=== PATIENT | male | born 1970 | race Caucasian/White ===

== ENCOUNTER 2017-02-14 20:31 | Observation (INO) ==
[2017-02-14] MEDS ORDERED: ASPIRIN 325 MG TABLET PO STA (20:56)
[2017-02-14] MEDS ORDERED: SODIUM CHLORIDE 0.9% 1,000 ML IV STA (20:56)
[2017-02-14] MEDS ORDERED: NITROGLYCERIN SL 0.4 MG TABLET SL PRN (20:56)
[2017-02-14] MEDS ORDERED: ASPIRIN 325 MG TABLET ONE (21:09)
--- NOTE | 2017-02-14 21:19 | Emergency Department Note ---
IMarina Emily, am scribing for, and in the presence of, Arsh Celis MD 21:03. IVimal Andrew, MD, personally performed the services described in this documentation, ascribed by Tyra Gray in my presence, and it is both accurate and complete . Arrival - Arrival Chief Complaint: Chest Pain Stated Complaint: CHEST PAINS ED Nursing Triage Note: C/O Midsternal chest pain-nonradiating. 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 Pt described pain as a pressure type pain. Denies nausea /vomiting/diaphoresis or shortness of breath with the pain. Right arm 175/124. Left arm 163/122. 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 Pt describes pain as sharp like a knife with some pressure and constantly while walking around the house, but denies anything strenuous. He did chew 3 tablets of aspirin 30 min COORDINATOR OF EVALUATION but denies nitro use. Family member notes that pt 's face was clammy en route to ED. Pt denies pain radiating, nausea or vomiting. PMHx of sleep apnea (dx 3-4 yrs ago) but compliant with machine during sleep each night due to mask being uncomfortable; HTN with hydrochlorothiazide under supervision of Dr. Laura. Pt is an occasional ETOH user but denies smoking tobacco. Family member notes pt did drink last night, in moderation. 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 Pt's BP is 195/123 in ED. Onset (ago): hour(s) Consistency: constant Severity: moderate Severity scale (1-10): 5 Quality: aching (pressure), sharp Allergies/Adverse Reactions: Allergies Allergy/AdvReac Type Severity Reaction Status Date / Time No Known Allergies Allergy Verified 02/14/17 20:37 Home Medications: Home Medications Medication Instructions Recorded Confirmed Type hydroCHLOROthiazide 25 mg PO DAILY 02/14/17 02/14/17 History [Hydrochlorothiazide] Review of System - Review of System 12 point system: reviewed and no additional remarkable complaints except as stated - Review of System Constitutional: Present: diaphoresis (clamminess on face but now resolved). Absent: fever, weakness Respiratory: Absent: respiratory distress Cardiovascular: Present: chest pain (mid sternum; constant; sharp). Absent: dyspnea on exertion, orthopnea, syncope Gastrointestinal: Absent: abdominal pain, nausea, vomiting Musculoskeletal: Absent: arm pain Skin: Absent: rash Neurological: Absent: headache, numbness, abnormal gait Psychiatric: Absent: anxiety Medical,Surgical,& Family Hx - Medical History Cardio: History of: Hypertension Respiratory: History of: Obstructive Sleep Apnea - Surgical History Surgical History: noncontributory - Family History Family History: noncontributory - Social History Smoking Status: Never smoker Frequency of Alcohol Use: Occasionally Type of Drug Use: None Functional capacity: independent ambulation Exam Vital Signs: Vital Signs Temperature 97.9 F 02/14/17 21:33 Pulse Rate 106 H 02/14/17 21:33 Respiratory Rate 22 02/14/17 21:33 Blood Pressure 163/122 02/14/17 21:33 O2 Sat by Pulse Oximetry 100 02/14/17 20:37 - General General appearance: alert, in no apparent distress, obese - Head Head exam: Present: atraumatic, normocephalic - Eye Eye exam: Present: PERRL, EOMI - ENT ENT exam: Present: mucous membranes moist. Absent: mucous membranes dry - Neck Neck exam: Present: full ROM. Absent: tenderness - Chest Chest inspection: Present: symmetric chest wall rise. Absent: tenderness - Respiratory Respiratory exam: Present: normal lung sounds bilaterally. Absent: accessory muscle use, respiratory distress, wheezes - Cardiovascular Cardiovascular exam: Present: regular rate, normal rhythm, normal heart sounds - Abdominal Exam Abdominal exam: Present: soft, hernia (periumbilical hernia that is easily reducible). Absent: distention - Extremities Exam Extremities exam: Present: full ROM, pedal edema (bilaterally; +1 pitting). Absent: tenderness - Neurological Exam Neurological exam: Present: alert, oriented X3, CN II-XII intact. Absent: motor sensory deficit - Psychiatric Psychiatric exam: Present: normal affect, normal mood - Skin Skin exam: Present: warm, dry, intact, normal color. Absent: rash, diaphoresis Course Course Narrative: EKG sinus mechanism, rate 106, normal axis, no evidence of acute ischemia. Chest x-ray with no focal infiltrates, normal mediastinum, normal heart border. Labs unremarkable and negative troponin 1. Patient discussed with hospitalist on-call and plan for admission for repeat troponin and stress testing in the a.m. for further risk stratification. Results - Labs CBC & BMP: 02/14/17 21:14 02/14/17 21:14 Lab Results: I have reviewed the patients labs - EKG EKG results: interpreted by NATHALIED, sinus rhythm, normal axis, normal QRS Disposition Clinical Impression: Chest pain Case discussed with: patient, patient's family Disposition: Still a Patient Condition: Stable
[2017-02-14 21:38] LABS: Basophils # 0.1 10*3/uL (0.0-0.2); Basophils % 0.9 % (0.0-0.8); Eosinophils # 0.2 10*3/uL (0.0-0.87); Eosinophils % 2.6 % (0.00-10.9); Hematocrit 43.2 VOL% (42.0-52.0); Immature Granulocytes % 0.2 %; Immature Granulocytes Absolute 0.02 #; Lymphocytes # 2.3 10*3/uL (1.4-4.0); Lymphocytes % 24.6 % (21.2-54.2); Mean Corpuscular HGB Conc 32.4 GM/DL (32-36); Mean Corpuscular Hemoglobin 25 PG (27-34); Mean Corpuscular Volume 76.2 FL (87-102); Mean Platelet Volume 10.8 FL (9.6-12.0); Monocytes # 0.9 10*3/uL (0.11-0.8); Monocytes % 9.9 % (1.7-12.7); Neutrophils # 5.7 10*3/uL (1.4-7.4); Neutrophils % 61.8 % (38.7-73.9); Platelet Count 219 T/CUMM (130-400); Red Blood Count 5.67 MC/CUMM (3.8-5.5); Red Cell Distribution Width 17.2 % (9.3-17.3); White Blood Count 9.2 T/CUMM (4-12)
[2017-02-14 22:00] LABS: Albumin 3.7 G/DL (3.4-5.0); Bilirubin,Total 0.5 MG/DL (0.2-1.0); Calcium 8.9 MG/DL (8.5-10.1); Osmolality,Calculated 279.3 MOS/KG (273-304); Potassium 3.2 MMOL/L (3.5-5.1); Total Protein 6.9 G/DL (6.4-8.3)
--- NOTE | 2017-02-14 22:58 | Hospitalist History & Physical ---
Assessment and Plan (1) Chest pain Status: Acute Current Visit: Yes Qualifiers: Chest pain type: unspecified Qualified Code(s): R07.9 - Chest pain, unspecified (2) Hypokalemia Status: Acute Current Visit: Yes (3) Uncontrolled hypertension Status: Acute Current Visit: Yes (4) Dysphagia Status: Acute Assessment and plan: Plan: Observe on telemetry, may consider stress test in a.m. Serial cardiac enzymes Lipid panel, A1c in a.m. Replace potassium We will add lisinopril 20 mg to his HCTZ 25 mg p.o. daily, hydralazine as needed at this time Supportive care for pain and/or nausea should this develop. At some point he would likely benefit from an EGD to workup his dysphagia to solids Current Visit: Yes Qualifiers: Dysphagia type: pharyngoesophageal phase Qualified Code(s): R13.14 - Dysphagia, pharyngoesophageal phase History of Present Illness Chief complaint: Acute onset midsternal chest pressure History of present illness: Mr. Wilkerson is a 46 year old male with hypertension, on medications for 4 months who is here with markedly elevated pressure and midsternal chest pressure starting after lunch. Occurs at rest and exertion. He is compliant with his blood pressure medication. Pressure is localized, he has no pressure or pain that radiates. It was partially relieved with sublingual nitro in the ER but has not fully resolved. His blood pressure remains approximately 170s over 100s. On arrival is 175/124. He denies known history of diabetes, coronary artery disease. His symptoms are constant at this time. No associated shortness of breath or diaphoresis. Additionally he states lately he has been having "food getting stuck," in his esophagus when he eats. However he states that this chest pressure feels completely different today. Home Medications Medication Instructions Recorded Confirmed Type hydroCHLOROthiazide 25 mg PO DAILY 02/14/17 02/14/17 History [Hydrochlorothiazide] Allergies Allergy/AdvReac Type Severity Reaction Status Date / Time No Known Allergies Allergy Verified 02/14/17 20:37 Medical,Surgical,& Family Hx - Medical History Cardio: History of: Hypertension Endocrine: No history of: Diabetes Mellitus (NIDDM) Respiratory: History of: Obstructive Sleep Apnea - Surgical History Additional Surgical History: No prior surgery - Family History Family History: Reports;: Family Diabetes - Social History Smoking Status: Never smoker Frequency of Alcohol Use: Occasionally Type of Drug Use: None Marital Status: Lives With:: Spouse Functional capacity: independent ambulation Review of systems: A 12 point review of systems is negative except as specified in the HPI Exam - Constitutional Vitals: Period Temp Pulse Resp BP Sys/Kyle Pulse Ox Last 24 Hr 97.9 F-97.9 F 106-106 22-22 163-163/122-122 100 Exam: EXAM: CONSTITUTIONAL: non toxic, NAD HEENT: NC, AT, OP benign, DOLORES, EOMI CV: RRR no m/g/r, pain is not reproducible to palpation RESP: clear B/L, no w/r/r GI: abd soft, NT, ND, +bowel sounds, + reducible umbilical hernia INTEGUMENTARY: no lesions or rash EXTREMITIES: no c/c/e NEURO: no focal deficits PSYCH: unremarkable, A/O x3 Results - Labs CBC & BMP: 02/14/17 21:14 02/14/17 21:14 Lab Results: I have reviewed the past 24 hour labs - EKG EKG shows: sinus rhythm - Diagnostic Findings Procedure: Chest x-ray: image reviewed by me
[2017-02-14] MEDS ORDERED: ACETAMINOPHEN 325 MG TABLET PO PRN (22:59)
[2017-02-14] MEDS ORDERED: MORPHINE 2 MG/1 ML SYRINGE IV PRN (22:59)
[2017-02-14] MEDS ORDERED: ONDANSETRON 4 MG/2 ML VIAL IV PRN (22:59)
[2017-02-14] MEDS ORDERED: BISACODYL 5 MG TABLET PO PRN (22:59)
[2017-02-15] MEDS ORDERED: ENOXAPARIN 40 MG/0.4 ML SYRINGE SUBCUT SCH
[2017-02-15 00:38] LABS: Basophils # 0.1 10*3/uL (0.0-0.2); Basophils % 0.6 % (0.0-0.8); Eosinophils # 0.2 10*3/uL (0.0-0.87); Eosinophils % 2.4 % (0.00-10.9); Hematocrit 39.8 VOL% (42.0-52.0); Hemoglobin 12.9 GM/DL (14.0-18.0); Immature Granulocytes % 0.2 %; Immature Granulocytes Absolute 0.02 #; Lymphocytes # 2.5 10*3/uL (1.4-4.0); Lymphocytes % 26.5 % (21.2-54.2); Mean Corpuscular HGB Conc 32.4 GM/DL (32-36); Mean Corpuscular Hemoglobin 25 PG (27-34); Mean Platelet Volume 11.6 FL (9.6-12.0); Monocytes # 0.9 10*3/uL (0.11-0.8); Monocytes % 9.2 % (1.7-12.7); Neutrophils # 5.8 10*3/uL (1.4-7.4); Neutrophils % 61.1 % (38.7-73.9); Platelet Count 222 T/CUMM (130-400); Red Blood Count 5.24 MC/CUMM (3.8-5.5); Red Cell Distribution Width 17.4 % (9.3-17.3); White Blood Count 9.6 T/CUMM (4-12)
[2017-02-15] MEDS: POTASSIUM CHLORIDE 20 MEQ TABLET PO PRN ×3 (00:54→04:59)
[2017-02-15 01:10] LABS: Alanine Aminotransferase 31 U/L (16-61); Albumin 3.5 G/DL (3.4-5.0); Alkaline Phosphatase 92 U/L (45-117); Aspartate Amino Transferase 19 U/L (0-37); Blood Urea Nitrogen 11 MG/DL (7-18); Calcium 9.1 MG/DL (8.5-10.1); Cholesterol 157 MG/DL (50-200); Glucose 103 MG/DL (74-106); HDL Cholesterol 29 MG/DL (40-60); Magnesium 1.8 MG/DL (1.8-2.4); Osmolality,Calculated 281.1 MOS/KG (273-304); Potassium 3.3 MMOL/L (3.5-5.1); Risk Ratio 5.41; Sodium 142 MMOL/L (136-145); Total Protein 6.2 G/DL (6.4-8.3); Triglycerides 213 MG/DL (2-150); Troponin I Only < 0.015 NG/ML (0.00-0.045); VLDL CHOLESTEROL 42.6 MG/DL
[2017-02-15] MEDS: hydrALAZINE 20 MG/1 ML VIAL IV PRN ×3 (01:13→16:01)
--- NOTE | 2017-02-15 08:13 | EKG Report ---
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
--- NOTE | 2017-02-15 08:14 | EKG Report ---
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
--- NOTE | 2017-02-15 08:15 | EKG Report ---
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
--- NOTE | 2017-02-15 08:18 | XRay Report ---
History: Chest pain Date: 02/14/2017 Study: Chest x-ray AP portable Comparison exam: No previous chest x-ray available The cardiomediastinal silhouette and pulmonary vasculature are unremarkable. The lungs and pleural spaces are clear. The osseous structures are unremarkable. Impression: No acute cardiopulmonary process PROCEDURE INTERPRETED AT [facility] DEPARTMENT OF RADIOLOGY Final Report Signed by: Dr. Nataly Mcknezie
[2017-02-15] MEDS ORDERED: hydroCHLOROthiazide 25 MG TABLET PO SCH (09:00)
[2017-02-15] MEDS ORDERED: LISINOPRIL 20 MG TABLET PO SCH (09:00)
[2017-02-15] MEDS ORDERED: PANTOPRAZOLE 40 MG TABLET PO SCH (09:00)
--- NOTE | 2017-02-15 11:07 | Cardiology Consult Note ---
<Kandice Hernández E - Last Filed: 02/15/17 11:22> Assessment and Plan - Time spent with patient Time spent with patient: Greater than 30 minutes (due to assessment, plan, and documentation) (1) Chest pain Status: Acute Assessment and plan: See plan of care listed below. Current Visit: Yes Qualifiers: Chest pain type: unspecified Qualified Code(s): R07.9 - Chest pain, unspecified (2) Uncontrolled hypertension Status: Chronic Assessment and plan: See plan of care listed below. Current Visit: Yes (3) Dyslipidemia Status: Acute Assessment and plan: See plan of care listed below. Current Visit: Yes (4) Obstructive sleep apnea Status: Chronic Assessment and plan: See plan of care listed below. Current Visit: Yes (5) Dysphagia Status: Acute Assessment and plan: See plan of care listed below. Current Visit: Yes Qualifiers: Dysphagia type: pharyngoesophageal phase Qualified Code(s): R13.14 - Dysphagia, pharyngoesophageal phase (6) Hypokalemia Status: Acute Assessment and plan: See plan of care listed below. Current Visit: Yes History of Present Illness - Data of Consult Patient: new to practice Consult date: 02/15/17 Requesting Physician: Wolf Hurd Primary care physician: Velma Buck - Consult Narrative Reason for consult: chest pain History of present illness: Auto [employer] Teacher: shanelle Roman PCP: Dr. Velma Buck at [facility] Mr. Wilkerson is a 46 year old male with a history of hypertension and obstructive sleep apnea (noncompliant). Risk factors are significant for: Hypertension, obesity, sedentary lifestyle. Is a lifetime non-smoker. He is noncompliant with his CPAP machine and has not seen sleep medicine for 5 years. He has no significant family medical history of coronary artery disease. Mr. Wilkerson presented to the emergency room last night with complaints of chest discomfort. He describes his pain as sharp and stabbing. He localizes this to the right side of his sternum. There is no radiation. It is nonreproducible. He reports he has had some milder, similar symptoms in the past which he has taken Tums and Rolaids for many years. Yesterday, he had no relief from Rolaids and according to his had a clammy appearance and was brought to the emergency room. He reports after receiving nitroglycerin in the emergency room his pain did ease up some. He tells me since last night it has not completely gone away. 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 He denies associated symptoms of shortness of breath, palpitations, dizziness, lightheadedness. He denies any recent symptoms of exertional chest pain. He also tells me that he is required to walk frequently for his job and can perform his activities of daily living without difficulty. He tells me that he does have some mild dyspnea on exertion which he has attributed to being out of shape since he is fairly sedentary when he is not at work. In addition, he describes a feeling of dysphagia and feeling as though food frequently gets "lodged" in his throat. He does not take a PPI on a regular basis. He has had 3 sets of negative cardiac biomarkers. EKG shows sinus rhythm with no acute ischemic changes and nonspecific ST-T abnormality. Hemoglobin A1c 6.2. He does have dyslipidemia. He will need aggressive risk factor modification and lifestyle changes. Assessment/Plan: 1. Chest pain - Patient presents with atypical chest pain symptoms more suggestive of GI etiology. Patient is NPO. Will further discuss with Dr. Roman and await his recommendations regarding inpatient versus outpatient stress testing. 2. Hypertensive urgency - Patient was diagnosed with HTN approximately 4 months ago and placed on HCTZ. We will continue to monitor and adjust medications accordingly for optimal blood pressure control. 3. Dyslipidemia - New diagnosis with triglycerides 213, cholesterol 157, LDL 108 , and HDL 29. Will start Crestor 20mg PO QHS and will reiterate the need for lifestyle modification including diet and exercise. 4. Obstructive Sleep Apnea - Will consult sleep medicine. I reiterated the importance of compliance with CPAP therapy. He may require repeat sleep study as an outpatient. 5. Dysphagia - patient will likely need to be on PPI therapy and see a GI physician in the future. 6. Hypokalemia - Continue with oral potassium replacement protocol. Will await further recommendations from Dr. Roman. CC: Sandro Alfaro MD - Home Medications and Allergies Home Medications: Home Medications Medication Instructions Recorded Confirmed Type hydroCHLOROthiazide 25 mg PO DAILY 02/14/17 02/14/17 History [Hydrochlorothiazide] Allergies/Adverse Reactions: Allergies Allergy/AdvReac Type Severity Reaction Status Date / Time No Known Allergies Allergy Verified 02/14/17 20:37 Review of systems: - Constitutional: Present: As per HPI. Absent: anorexia, chills, daytime sleepiness, excessive sweating, fever(s), frequent falls, headache(s), increased appetite, lethargy, malaise, night sweats, stops breathing during sleep, weakness, weight gain, weight loss, fatigue. - EENT Eyes: Present: As per HPI. Absent: blurry vision, diplopia, loss of vision Ears: Present: As per HPI. Absent: decreased hearing, ear discharge, ear pain Nose, mouth and throat: Present:dysphagia, As per HPI. Absent: epistaxis, headache(s), hoarseness, lip swelling, nasal congestion, neck mass, neck pain, sinus pressure, sore throat, throat swelling, tongue swelling, vertigo - Cardiovascular: Present: chest pain at rest, diaphoresis, as per HPI. Absent : chest pain with activity, dyspnea, dyspnea on exertion, edema, claudication, radiating jaw, neck or arm pain, lightheadedness, orthopnea, palpitations, PND - Respiratory: Present: snoring, as per HPI. Absent: dyspnea, dyspnea on exertion, cough, hemoptysis, wheezing, pain on inspiration - Gastrointestinal: Present: heartburn, As per HPI. Absent: abdominal pain, bloating, change in bowel habits, constipation, diarrhea, hematemesis, hematochezia, loose stools, melena, nausea, vomiting - Genitourinary: Present: urinary frequency, As per HPI. Absent: difficulty urinating, dysuria, flank pain, hematuria, nocturia, urinary incontinence - Musculoskeletal: Present: As per HPI. Absent: arthralgias, back pain, joint swelling, limited range of motion, muscle cramps, muscle weakness, myalgias - Neurological: Present: As per HPI. Absent: abnormal gait, abnormal speech, behavioral changes, confusion, convulsions, disequilibrium, dizziness, focal weakness, frequent falls, headache(s), memory loss, numbness, paresthesias, radicular pain, syncope, tremor(s) - Psychiatric: Present: As per HPI. Absent: anxiety, confusion, depression, panic attacks - Endocrine: Present: As per HPI. Absent: cold intolerance, fatigue, heat intolerance, polydipsia, polyphagia - Hematologic/Lymphatic: Present: As per HPI. Absent: easy bleeding, easy bruising, lymphadenopathy Medical,Surgical,& Family Hx - Medical History Cardio: History of: Hypertension No history of: CAD Endocrine: No history of: Diabetes Mellitus (NIDDM) Respiratory: History of: Obstructive Sleep Apnea - Family History Family History: Reports;: Family Diabetes, Family Hypertension - Social History Smoking Status: Never smoker Frequency of Alcohol Use: Occasionally Type of Drug Use: None Marital Status: Lives With:: Spouse Functional capacity: independent ambulation Physical Examination Vital Signs Temp Pulse Resp BP Pulse Ox 97.9 F 106 H 22 163/122 100 02/14/17 20:37 02/14/17 20:37 02/14/17 20:37 02/14/17 20:37 02/14/17 20:37 Other: General appearance: Pleasant and cooperative. Obese, no acute distress. - Head Head exam: Present: normal inspection, normocephalic, atraumatic. Absent: hematoma, laceration - Eye Eye exam: Present: EOMI. Absent: conjunctival injection, nystagmus, periorbital swelling, scleral icterus, laceration to eyelids Pupils: Present: PERRL. Absent: constricted, dilated, fixed, irregular, unequal - ENT ENT exam: Present: normal exam, normal external ear exam - Neck Neck exam: Present: normal inspection. Absent: lymphadenopathy, meningismus, tenderness, thyromegaly - Respiratory Respiratory exam: Present: clear to auscultation bilaterally. Absent: accessory muscle use, chest wall tenderness - Cardiovascular Cardiovascular exam: Present: regular rate and rhythm. Absent: carotid bruit, gallop, JVD, rubs, murmur - GI/Abdominal GI/Abdominal exam: Present: normal bowel sounds, soft. Absent: distended, firm , guarding, hernia, mass, tenderness, rebound. - Extremities Exam Extremities exam: Present: normal inspection, normal capillary refill. Upper extremity pulses 2+. Lower extremity pulses 2+. Absent: calf tenderness, edema -Musculoskeletal Exam Musculoskeletal: Present: No Fluid Collection, No Pain, Normal Range of Motion - Back Exam Back exam: Present: normal inspection. Absent: muscle spasm, vertebral tenderness - Neurological Exam Neurological exam: Present: alert, oriented X3, grossly intact without resting or essential tremor - Psychiatric Psychiatric exam: Present: normal affect, normal mood - Skin Skin exam: Present: normal color, warm, dry, intact. Absent: cyanosis, diaphoretic, rash, urticaria Result/EKG - Labs CBC & BMP: 02/15/17 00:27 02/15/17 00:27 Lab Results: I have reviewed the past 24 hour labs Labs: Laboratory Results - last 24 hr 02/14/17 02/14/17 02/14/17 21:14 21:14 21:14 WBC 9.2 RBC 5.67 H Hgb 14.0 Hct 43.2 MCV 76.2 L MCH 25 L MCHC 32.4 RDW 17.2 Plt Count 219 MPV 10.8 Neut % (Auto) 61.8 Lymph % (Auto) 24.6 [place] % (Auto) 9.9 Eos % (Auto) 2.6 Baso % (Auto) 0.9 H Neut # (Auto) 5.7 Lymph # (Auto) 2.3 [place] # (Auto) 0.9 H Eos # (Auto) 0.2 Baso # (Auto) 0.1 Immature Gran % 0.2 Nucleated RBC % 0.0 Immature Gran # 0.02 Nucleated RBCs # 0.00 Sodium 141 Potassium 3.2 L Chloride 104 Carbon Dioxide 28 Anion Gap 12.2 BUN 11 Creatinine 1.20 GFR Calculation 102 BUN/Creatinine Ratio 9.00 Glucose 107 H Hemoglobin A1c Calculated Osmolality 279.3 Calcium 8.9 Magnesium Total Bilirubin 0.50 AST 21 ALT 32 Alkaline Phosphatase 99 Total Creatine Kinase CK-MB (CK-2) Troponin I B-Natriuretic Peptide 9 Total Protein 6.9 Albumin 3.7 Globulin 3.2 Albumin/Globulin Ratio 1.1 Triglycerides Cholesterol LDL Cholesterol VLDL Cholesterol HDL Cholesterol Heart Disease Risk Ratio 02/14/17 02/15/17 02/15/17 21:14 00:27 00:27 WBC 9.6 RBC 5.24 Hgb 12.9 L Hct 39.8 L MCV 76.0 L MCH 25 L MCHC 32.4 RDW 17.4 H Plt Count 222 MPV 11.6 Neut % (Auto) 61.1 Lymph % (Auto) 26.5 [place] % (Auto) 9.2 Eos % (Auto) 2.4 Baso % (Auto) 0.6 Neut # (Auto) 5.8 Lymph # (Auto) 2.5 [place] # (Auto) 0.9 H Eos # (Auto) 0.2 Baso # (Auto) 0.1 Immature Gran % 0.2 Nucleated RBC % 0.0 Immature Gran # 0.02 Nucleated RBCs # 0.00 Sodium Potassium Chloride Carbon Dioxide Anion Gap BUN Creatinine GFR Calculation BUN/Creatinine Ratio Glucose Hemoglobin A1c Calculated Osmolality Calcium Magnesium Total Bilirubin AST ALT Alkaline Phosphatase Total Creatine Kinase CK-MB (CK-2) Troponin I < 0.015 < 0.015 B-Natriuretic Peptide Total Protein Albumin Globulin Albumin/Globulin Ratio Triglycerides Cholesterol LDL Cholesterol VLDL Cholesterol HDL Cholesterol Heart Disease Risk Ratio 02/15/17 02/15/17 02/15/17 00:27 00:27 04:06 WBC RBC Hgb Hct MCV MCH MCHC RDW Plt Count MPV Neut % (Auto) Lymph % (Auto) [place] % (Auto) Eos % (Auto) Baso % (Auto) Neut # (Auto) Lymph # (Auto) [place] # (Auto) Eos # (Auto) Baso # (Auto) Immature Gran % Nucleated RBC % Immature Gran # Nucleated RBCs # Sodium 142 Potassium 3.3 L Chloride 104 Carbon Dioxide 28 Anion Gap 13.3 BUN 11 Creatinine 1.10 GFR Calculation 119 BUN/Creatinine Ratio 10.00 Glucose 103 Hemoglobin A1c 6.2 Calculated Osmolality 281.1 Calcium 9.1 Magnesium 1.8 Total Bilirubin 0.70 AST 19 ALT 31 Alkaline Phosphatase 92 Total Creatine Kinase 127 CK-MB (CK-2) 2.1 Troponin I < 0.015 0.015 B-Natriuretic Peptide Total Protein 6.2 L Albumin 3.5 Globulin 2.7 Albumin/Globulin Ratio 1.2 Triglycerides 213 H Cholesterol 157 LDL Cholesterol 108.0 VLDL Cholesterol 42.6 HDL Cholesterol 29 L Heart Disease Risk Ratio 5.41 - EKG EKG results: interpreted by me, sinus rhythm (with nonspecific ST-T abnormality) <Raad Roman - Last Filed: 02/15/17 11:53> History of Present Illness - Consult Narrative History of present illness: Cardiology addendum Chart reviewed, patient examined, discussed with nurse Kandice Hernández NP. Atypical chest pain. Negative troponin 2. EKG shows ST-T wave changes only. Untreated hypertension Obstructive sleep apnea, noncompliant with CPAP Morbid obesity Lifetime non-smoker No family history for CAD Plan Echo Doppler Lexiscan cardiac stress test today Risk factor modification BP medications started CC: Sandro Alfaro MD Physical Examination Vital Signs Temp Pulse Resp BP Pulse Ox 97.9 F 106 H 22 163/122 100 02/14/17 20:37 02/14/17 20:37 02/14/17 20:37 02/14/17 20:37 02/14/17 20:37 Result/EKG - Labs CBC & BMP: 02/15/17 00:27 02/15/17 00:27 Labs: Laboratory Results - last 24 hr 02/14/17 02/14/17 02/14/17 21:14 21:14 21:14 WBC 9.2 RBC 5.67 H Hgb 14.0 Hct 43.2 MCV 76.2 L MCH 25 L MCHC 32.4 RDW 17.2 Plt Count 219 MPV 10.8 Neut % (Auto) 61.8 Lymph % (Auto) 24.6 [place] % (Auto) 9.9 Eos % (Auto) 2.6 Baso % (Auto) 0.9 H Neut # (Auto) 5.7 Lymph # (Auto) 2.3 [place] # (Auto) 0.9 H Eos # (Auto) 0.2 Baso # (Auto) 0.1 Immature Gran % 0.2 Nucleated RBC % 0.0 Immature Gran # 0.02 Nucleated RBCs # 0.00 Sodium 141 Potassium 3.2 L Chloride 104 Carbon Dioxide 28 Anion Gap 12.2 BUN 11 Creatinine 1.20 GFR Calculation 102 BUN/Creatinine Ratio 9.00 Glucose 107 H Hemoglobin A1c Calculated Osmolality 279.3 Calcium 8.9 Magnesium Total Bilirubin 0.50 AST 21 ALT 32 Alkaline Phosphatase 99 Total Creatine Kinase CK-MB (CK-2) Troponin I B-Natriuretic Peptide 9 Total Protein 6.9 Albumin 3.7 Globulin 3.2 Albumin/Globulin Ratio 1.1 Triglycerides Cholesterol LDL Cholesterol VLDL Cholesterol HDL Cholesterol Heart Disease Risk Ratio 02/14/17 02/15/17 02/15/17 21:14 00:27 00:27 WBC 9.6 RBC 5.24 Hgb 12.9 L Hct 39.8 L MCV 76.0 L MCH 25 L MCHC 32.4 RDW 17.4 H Plt Count 222 MPV 11.6 Neut % (Auto) 61.1 Lymph % (Auto) 26.5 [place] % (Auto) 9.2 Eos % (Auto) 2.4 Baso % (Auto) 0.6 Neut # (Auto) 5.8 Lymph # (Auto) 2.5 [place] # (Auto) 0.9 H Eos # (Auto) 0.2 Baso # (Auto) 0.1 Immature Gran % 0.2 Nucleated RBC % 0.0 Immature Gran # 0.02 Nucleated RBCs # 0.00 Sodium Potassium Chloride Carbon Dioxide Anion Gap BUN Creatinine GFR Calculation BUN/Creatinine Ratio Glucose Hemoglobin A1c Calculated Osmolality Calcium Magnesium Total Bilirubin AST ALT Alkaline Phosphatase Total Creatine Kinase CK-MB (CK-2) Troponin I < 0.015 < 0.015 B-Natriuretic Peptide Total Protein Albumin Globulin Albumin/Globulin Ratio Triglycerides Cholesterol LDL Cholesterol VLDL Cholesterol HDL Cholesterol Heart Disease Risk Ratio 02/15/17 02/15/17 02/15/17 00:27 00:27 04:06 WBC RBC Hgb Hct MCV MCH MCHC RDW Plt Count MPV Neut % (Auto) Lymph % (Auto) [place] % (Auto) Eos % (Auto) Baso % (Auto) Neut # (Auto) Lymph # (Auto) [place] # (Auto) Eos # (Auto) Baso # (Auto) Immature Gran % Nucleated RBC % Immature Gran # Nucleated RBCs # Sodium 142 Potassium 3.3 L Chloride 104 Carbon Dioxide 28 Anion Gap 13.3 BUN 11 Creatinine 1.10 GFR Calculation 119 BUN/Creatinine Ratio 10.00 Glucose 103 Hemoglobin A1c 6.2 Calculated Osmolality 281.1 Calcium 9.1 Magnesium 1.8 Total Bilirubin 0.70 AST 19 ALT 31 Alkaline Phosphatase 92 Total Creatine Kinase 127 CK-MB (CK-2) 2.1 Troponin I < 0.015 0.015 B-Natriuretic Peptide Total Protein 6.2 L Albumin 3.5 Globulin 2.7 Albumin/Globulin Ratio 1.2 Triglycerides 213 H Cholesterol 157 LDL Cholesterol 108.0 VLDL Cholesterol 42.6 HDL Cholesterol 29 L Heart Disease Risk Ratio 5.41
--- NOTE | 2017-02-15 11:18 | Hospitalist Progress Note ---
Assessment and Plan (1) Chest pain Status: Acute Assessment and plan: The patient will have stress testing with Dr. Roman prior to discharge. We will reinforce the patient's antihypertensive regimen and have him follow-up with his usual primary care physician at the time of discharge. Current Visit: Yes Qualifiers: Chest pain type: unspecified Qualified Code(s): R07.9 - Chest pain, unspecified (2) Dysphagia Status: Acute Current Visit: Yes Qualifiers: Dysphagia type: pharyngoesophageal phase Qualified Code(s): R13.14 - Dysphagia, pharyngoesophageal phase Hospitalist: Subjective Interval history: This is a 46-year-old gentleman with multiple risk factors for coronary artery disease. The patient presents to the hospital with atypical chest pain symptoms consistent with esophageal spasm. The patient has some esophageal stenosis symptoms as well. After admission to the hospital myocardial infarction has been ruled out by EKG and enzymes. I coordinate care with Dr. cedeno. Due to the patient's multiple risk factors he feels that stress testing prior to discharge was appropriate. The patient is n.p.o. and ready for the test. Exam - Constitutional Vitals: Period Temp Pulse Resp BP Sys/Kyle Pulse Ox Last 24 Hr 97.6 F-98.5 F 88-106 20-28 144-163/83-128 95-100 General appearance: no acute distress - Respiratory Respiratory exam: Present: clear to auscultation bilaterally - Cardiovascular Cardiovascular exam: Present: regular rate and rhythm - GI/Abdominal GI/Abdominal exam: Present: normal bowel sounds Results - Labs CBC & BMP: 02/15/17 00:27 02/15/17 00:27 Lab Results: I have reviewed the past 24 hour labs
[2017-02-15] MEDS ORDERED: ASPIRIN CHEW 81 MG TABLET PO SCH (12:00)
--- NOTE | 2017-02-15 13:00 | Event Note ---
Patient underwent Nuclear Stress Testing with achievement of THR in Stage II of Sandro Protocol. Patient had no chest pain, dizziness, lightheadedness or syncope. Blood pressure responded appropriately. No significant ST changes noted. Patient now to nuclear medicine for final scan. Dr. Roman to read, interpret, and advise.
--- NOTE | 2017-02-15 14:07 | ECHO Report ---
Jamin Wilkerson Exam Date: 02/15/2017 12:54 Referring Physician: Technologist: Barbie Brito Age: 46 Ht (in): 73 Wt (lb): 294 Gender: M Exam Location: [facility] Echo Indications: hypokalemia, dysphagia, chest pain, uncontrolled HTN, dyslipidemia, TAMMIE BP: 151 / 98 HR: 114 Rhythm: Sinus Technical Quality: Technically difficult study IMPRESSIONS Technically difficult study .Normal left ventricular size and systolic function, left ventricular ejection fraction is estimated at 55 % .Grade I/IV diastolic dysfunction (abnormal relaxation filling pattern), normal to mildly elevated filling pressures. Normal right ventricular size and systolic function. Normal right atrial size. Normal left atrial size. Morphologically normal mitral valve. No mitral valve regurgitation. Aortic valve sclerosis. No aortic valve regurgitation. Mild tricuspid valve regurgitation. [id number] mmHg. Morphologically normal pulmonic valve. No pericardial effusion. Normal size aortic root and proximal ascending aorta. MEASUREMENTS (Male / Female) Normal Values 2D ECHO LV Diastolic Diameter PLAX 4.6 cm 4.2 - 5.9 / 3.9 - 5.3 cm LV Systolic Diameter PLAX 2.4 cm LV Fractional Shortening PLAX 47.9 % IVS Diastolic Thickness 1.9 cm 0.6 - 1.0 / 0.6 - 0.9 cm LVPW Diastolic Thickness 1.5 cm 0.6 - 1.0 / 0.6 - 0.9 cm RV Internal Dim ED PLAX 3.3 cm Aortic Root Diameter 2.9 cm LA Systolic Diameter LX 4.4 cm 3.0 - 4.0 / 2.7 - 3.8 cm DOPPLER TR Peak Velocity 143.0 cm/s TR Peak Gradient 8.2 mmHg FINDINGS Left Ventricle Normal left ventricular size and systolic function, left ventricular ejection fraction is estimated at 55 %.Grade I/IV diastolic dysfunction (abnormal relaxation filling pattern), normal to mildly elevated filling pressures. Right Ventricle Normal right ventricular size and systolic function. Right Atrium Normal right atrial size. Left Atrium Normal left atrial size. Mitral Valve Morphologically normal mitral valve. No mitral valve regurgitation. Aortic Valve Aortic valve sclerosis. No aortic valve regurgitation. Tricuspid Valve Morphologically normal tricuspid valve. Mild tricuspid valve regurgitation. [id number] mmHg. Pulmonic Valve Morphologically normal pulmonic valve. Pericardium No pericardial effusion. Aorta Normal size aortic root and proximal ascending aorta. Hernesto Plavac (Electronically Signed) Final Date: 15 February 2017 14:06
--- NOTE | 2017-02-15 16:13 | Sleep Medicine Consult ---
Assessment and Plan (1) Obstructive sleep apnea Status: Chronic Assessment and plan: This patient absolutely needs to be treated for his severe obstructive sleep apnea. He will get his to bring his CPAP machine up here. I had like to get him down to the sleep clinic and get a Pap nap done on him and help him acclimate to a CPAP mask that will be tolerable for him. I think if we can get him back in clinic in follow-up with him regularly and keep him compliant with CPAP, he will have no issues with compliance once he is on therapy regularly. Current Visit: Yes (2) Uncontrolled hypertension Status: Chronic Assessment and plan: The prevalence rate for obstructive sleep apnea patients with hypertension is 35 %. That rate can be as high as 80% in patients who require 4 or more medications for blood pressure control. Current Visit: Yes History of Present Illness Chief complaint: Obstructive sleep apnea History of present illness: Mr. Wilkerson is a 46 year old male admitted with chest pain. He has a history of severe obstructive sleep apnea diagnosed a few years ago at an outside sleep lab. He was placed on CPAP and oxygen in combination on a split-night study for severe obstructive sleep apnea. He was on treatment for about a year but eventually quit using it because he could not tolerate CPAP and the mask. He was subsequently lost to follow-up. He continues to snore loudly and have abnormal breathing during his sleep. He tosses and turns throughout the night and is very of unrefreshed upon awakening. He has an [place] sleepiness score of 19. Home Medications Medication Instructions Recorded Confirmed Type hydroCHLOROthiazide 25 mg PO DAILY 02/14/17 02/14/17 History [Hydrochlorothiazide] Allergies Allergy/AdvReac Type Severity Reaction Status Date / Time No Known Allergies Allergy Verified 02/14/17 20:37 Review of systems: Otherwise unremarkable from a sleep standpoint. Exam (Pulmonay) H&P - Constitutional Vitals: Period Temp Pulse Resp BP Sys/Kyle Pulse Ox Last 24 Hr 97.6 F-98.5 F 88-106 18-28 144-163/83-128 95-100 Exam: He is alert and responsive in no acute distress. Pupils equal round reactive to light and accommodation. Extraocular movements intact. Oropharynx with a class III Mallampati exam. Neck is large and supple without adenopathy or thyromegaly. No supraclavicular adenopathy is noted. Chest with symmetrical breath sounds without focal wheeze, rhonchi, or rales. Cardiac exam reveals a regular rhythm without murmur or gallop. Abdomen obese nontender without palpable hepatosplenomegaly or mass. Extremities are without clubbing, cyanosis , or edema. Neurologically, he is grossly intact. He moves all extremities with good strength and ambulates with a normal gait. Medical,Surgical,& Family Hx - Medical History Cardio: History of: Hypertension No history of: CAD Endocrine: No history of: Diabetes Mellitus (NIDDM) Respiratory: History of: Obstructive Sleep Apnea - Family History Family History: Reports;: Family Diabetes, Family Hypertension - Social History Smoking Status: Never smoker Frequency of Alcohol Use: Occasionally Type of Drug Use: None Results - Labs CBC & BMP: 02/15/17 00:27 02/15/17 11:21 Lab Results: I have reviewed the past 24 hour labs
[2017-02-15 16:16] VITALS: BP 170/107
--- NOTE | 2017-02-15 16:50 | Discharge Summary ---
Hospital Course - Hospital Course Hospital Course: The patient was admitted to the hospital with some difficulty swallowing and with atypical chest pain symptoms. The patient had rule out myocardial infarction by EKG and enzymes. Dr. Roman evaluated him and performed exercise tolerance test. There was no evidence of coronary ischemia. The patient is now ready for discharge home and follow-up with a GI specialist as an outpatient to evaluate swallowing. - Time spent with patient Time with patient DS: Greater than 30 minutes (32 minutes) Time spent discussing smoking cessation with patient: 3 to 10 minutes (8 minutes ) Diagnosis - Discharge Diagnosis (1) Chest pain Status: Resolved (2) Dysphagia Status: Chronic Discharge Plan - Discharge Data Disposition: Disch To Home/Self Care Condition at Discharge: Stable Discharge Diet: advance to your usual diet Activity: resume usual activities as tolerated - Discharge Medications Continue hydroCHLOROthiazide [Hydrochlorothiazide] 25 mg PO DAILY - Follow Up or Referral Follow Up: GI,doctor [Other] - Forms/Instructions Exam - Constitutional Vitals: Period Temp Pulse Resp BP Sys/Kyle Pulse Ox Last 24 Hr 97.6 F-98.5 F 88-107 18-28 144-170/83-128 95-100 Discharge Results Procedures and tests throughout hospitalization: Pending Orders 02/15/17 11:46 NM pratik perf SPECT rest or str Routine 02/16/17 04:00 BMP w/ Mg [Basic Metabolic Panel w/Mg] IN AM CBC [Comp Blood Count Auto Diff] IN AM 02/17/17 04:00 BMP w/ Mg [Basic Metabolic Panel w/Mg] IN AM CBC [Comp Blood Count Auto Diff] IN AM 02/18/17 04:00 BMP w/ Mg [Basic Metabolic Panel w/Mg] IN AM CBC [Comp Blood Count Auto Diff] IN AM 02/19/17 04:00 BMP w/ Mg [Basic Metabolic Panel w/Mg] IN AM CBC [Comp Blood Count Auto Diff] IN AM Labs on day of discharge: Labs from last 24 hours 02/15/17 02/15/17 02/15/17 11:21 04:06 00:27 WBC RBC Hgb Hct MCV MCH MCHC RDW Plt Count MPV Neut % (Auto) Lymph % (Auto) [place] % (Auto) Eos % (Auto) Baso % (Auto) Neut # (Auto) Lymph # (Auto) [place] # (Auto) Eos # (Auto) Baso # (Auto) Immature Gran % Nucleated RBC % Immature Gran # Nucleated RBCs # Sodium Potassium 3.6 Chloride Carbon Dioxide Anion Gap BUN Creatinine GFR Calculation BUN/Creatinine Ratio Glucose Hemoglobin A1c 6.2 Calculated Osmolality Calcium Magnesium Total Bilirubin AST ALT Alkaline Phosphatase Total Creatine Kinase CK-MB (CK-2) Troponin I 0.015 B-Natriuretic Peptide Total Protein Albumin Globulin Albumin/Globulin Ratio Triglycerides Cholesterol LDL Cholesterol VLDL Cholesterol HDL Cholesterol Heart Disease Risk Ratio 02/15/17 02/15/17 02/15/17 00:27 00:27 00:27 WBC 9.6 RBC 5.24 Hgb 12.9 L Hct 39.8 L MCV 76.0 L MCH 25 L MCHC 32.4 RDW 17.4 H Plt Count 222 MPV 11.6 Neut % (Auto) 61.1 Lymph % (Auto) 26.5 [place] % (Auto) 9.2 Eos % (Auto) 2.4 Baso % (Auto) 0.6 Neut # (Auto) 5.8 Lymph # (Auto) 2.5 [place] # (Auto) 0.9 H Eos # (Auto) 0.2 Baso # (Auto) 0.1 Immature Gran % 0.2 Nucleated RBC % 0.0 Immature Gran # 0.02 Nucleated RBCs # 0.00 Sodium 142 Potassium 3.3 L Chloride 104 Carbon Dioxide 28 Anion Gap 13.3 BUN 11 Creatinine 1.10 GFR Calculation 119 BUN/Creatinine Ratio 10.00 Glucose 103 Hemoglobin A1c Calculated Osmolality 281.1 Calcium 9.1 Magnesium 1.8 Total Bilirubin 0.70 AST 19 ALT 31 Alkaline Phosphatase 92 Total Creatine Kinase 127 CK-MB (CK-2) 2.1 Troponin I < 0.015 < 0.015 B-Natriuretic Peptide Total Protein 6.2 L Albumin 3.5 Globulin 2.7 Albumin/Globulin Ratio 1.2 Triglycerides 213 H Cholesterol 157 LDL Cholesterol 108.0 VLDL Cholesterol 42.6 HDL Cholesterol 29 L Heart Disease Risk Ratio 5.41 02/14/17 02/14/17 02/14/17 21:14 21:14 21:14 WBC 9.2 RBC 5.67 H Hgb 14.0 Hct 43.2 MCV 76.2 L MCH 25 L MCHC 32.4 RDW 17.2 Plt Count 219 MPV 10.8 Neut % (Auto) 61.8 Lymph % (Auto) 24.6 [place] % (Auto) 9.9 Eos % (Auto) 2.6 Baso % (Auto) 0.9 H Neut # (Auto) 5.7 Lymph # (Auto) 2.3 [place] # (Auto) 0.9 H Eos # (Auto) 0.2 Baso # (Auto) 0.1 Immature Gran % 0.2 Nucleated RBC % 0.0 Immature Gran # 0.02 Nucleated RBCs # 0.00 Sodium Potassium Chloride Carbon Dioxide Anion Gap BUN Creatinine GFR Calculation BUN/Creatinine Ratio Glucose Hemoglobin A1c Calculated Osmolality Calcium Magnesium Total Bilirubin AST ALT Alkaline Phosphatase Total Creatine Kinase CK-MB (CK-2) Troponin I < 0.015 B-Natriuretic Peptide 9 Total Protein Albumin Globulin Albumin/Globulin Ratio Triglycerides Cholesterol LDL Cholesterol VLDL Cholesterol HDL Cholesterol Heart Disease Risk Ratio 02/14/17 21:14 WBC RBC Hgb Hct MCV MCH MCHC RDW Plt Count MPV Neut % (Auto) Lymph % (Auto) [place] % (Auto) Eos % (Auto) Baso % (Auto) Neut # (Auto) Lymph # (Auto) [place] # (Auto) Eos # (Auto) Baso # (Auto) Immature Gran % Nucleated RBC % Immature Gran # Nucleated RBCs # Sodium 141 Potassium 3.2 L Chloride 104 Carbon Dioxide 28 Anion Gap 12.2 BUN 11 Creatinine 1.20 GFR Calculation 102 BUN/Creatinine Ratio 9.00 Glucose 107 H Hemoglobin A1c Calculated Osmolality 279.3 Calcium 8.9 Magnesium Total Bilirubin 0.50 AST 21 ALT 32 Alkaline Phosphatase 99 Total Creatine Kinase CK-MB (CK-2) Troponin I B-Natriuretic Peptide Total Protein 6.9 Albumin 3.7 Globulin 3.2 Albumin/Globulin Ratio 1.1 Triglycerides Cholesterol LDL Cholesterol VLDL Cholesterol HDL Cholesterol Heart Disease Risk Ratio DS: Provider Date of admission: 02/14/17 22:59 Primary care physician: . No PCP Attending physician on admission: Wolf Hurd DO Consults: 02/15/17 01:06 Consult to Physician [CONS] Routine Comment: Consulting Provider: Consult to Specialist Group: Cardiology When should Consulting Provider be notified: In am Person Notified: Barbie Date Notified: 02/15/17 Time Notified: 07:45 02/15/17 11:21 Consult to Sleep Center [CONS] Routine Reason for Sleep Center: Sleep Center Physician Consult Comment: Snoring, HTN, obesity, noncompliant w/ cpap, has not F/U in 4-5 years Discharging clinician: Sandro Alfaro MD
--- NOTE | 2017-02-15 16:52 | Nuclear Medicine Report ---
REFERRING PHYSICIAN: Sandro Alfaro M.D. PROCEDURE: EXERCISE CARDIOLITE GATED SPECT PERFUSION STUDY. INITIAL IMPRESSION: 1. A 46-YEAR-OLD MALE WITH ATYPICAL CHEST PAIN. 2. HYPERTENSION. 3. ABNORMAL ELECTROCARDIOGRAM. FINAL IMPRESSION: NORMAL EXERCISE CARDIOLITE GATED SPECT PERFUSION STUDY. I. DESCRIPTION OF PROCEDURE: The patient received 10.0 mCi of Technetium-99m Cardiolite IV and res t images were obtained in the routine manner 20 minutes later. The patient then walked for 5 minutes and 10 seconds on the Sandro protocol and achieved a peak heart of 160, which is 90% of his predicted maximal heart rate. At peak exercise, 30.0 mCi of Technetium-99m Cardiolite IV was injected and str ess images were obtained in the routine manner 20 minutes later. Serial electrocardiograms were perf ormed. The initial blood pressure was 180/80 and it was 200/110 immediate post exercise. II. RESULTS: The patient had no chest pain or arrhythmias and the test was terminated due to shortn ess of breath and fatigue. The resting EKG demonstrates normal sinus rhythm with right axis deviatio n, incomplete right bundle-branch block and diffuse ST-T wave changes. With exercise, no diagnostic EKG changes occurred. Rare isolated PVCs only. Review of the rotating planar images demonstrates increased lung/cardiac uptake consistent with diast olic dysfunction. Tomographic imaging demonstrates homogeneous uptake of radioisotope in all segment s. No evidence for ischemia or scar. Gated SPECT imaging demonstrates normal wall motion and thicke annmarie in all segments. The calculated ejection fraction is 52%. III. FINAL IMPRESSION: 1. CLINICALLY AND ELECTROCARDIOGRAPHICALLY NEGATIVE. 2. FAIR WORK CAPACITY. 3. HYPERTENSIVE BLOOD PRESSURE RESPONSE TO EXERCISE 200/110 (AT [place]). 4. SCINTIGRAPHICALLY NORMAL PERFUSION STUDY. IV. DISPOSITION: The patient should be reassured regarding the lack of any evidence for significant coronary artery disease at this time. He had no chest pain or diagnostic EKG changes and tomographi c imaging is normal. In addition, ventricular function is well preserved with ejection fraction of 5 2%. This is a low-risk scan, continued medical therapy and risk factor modification recommended. Procedure performed and interpreted at [facility] Department of Radiology. CC: Sandro Alfaro M.D.
[2017-02-15] MEDS ORDERED: ROSUVASTATIN 20 MG TABLET PO SCH (21:00)
== END 2017-02-15 18:03 | disposition home or self-care (01) ==
LOC: N.ED 20:31 → N.EDINP 20:31 → SUATTDRO 22:59 → N.TELES 23:47
PROVIDERS: ADMIT Internal Medicine; ATTEND Internal Medicine